=== PATIENT | male | born 1970 | race Caucasian/White ===

== ENCOUNTER 2019-01-21 03:22 | Emergency (ER) | payer MEDICAID ==
--- NOTE | 2019-01-21 03:47 | ED Physician Chart ---
ED Chief Complaint/HPI - Patient Information Date Seen:: 01/21/19 Time Seen:: 03:46 Chief Complaint:: Ear pain and throat lump History of Present Illness:: 48 yo homeless male had bilateral ear pain, right side worse than left side, and right throat painful lump for 2 weeks. Pt stated that he had been to [facility] ER and was given Ibuprofen which was too weak. Pt wanted stronger pain medication. Allergies:: Allergies Allergy/AdvReac Type Severity Reaction Status Date / Time No Known Allergies Allergy Verified 01/21/19 03:35 Vitals:: Vital Signs - 8 hr 01/21/19 03:26 Temp 96.8 F HR 74 RR 19 BP 118/72 O2 Sat % 97 ED Review of Systems - Review of Systems General/Constitutional: No fever, No chills Skin: No rash Head: No headache Eyes: No pain ENT: Earache Neck: No neck pain Cardio Vascular: No chest pain Pulmonary: No SOB GI: No nausea, No vomiting Musculoskeletal: No bone or joint pain Neurological: No focal symptoms ED Past Medical History - Past Medical History Past Medical History: HTN Social History: Non Smoker, No Alcohol, No Drug Use Family Medical History - Family Member Mother History Unknown: Yes ED Physical Exam - Physical Examination General/Constitutional: Awake, Alert Head: Atraumatic Eyes: PERRL, EOMI Skin: No ecchymosis Other ENMT comments:: Right tympanic membrane erythema. Right tonsilar erythema and swelling Neck: No nuchal rigidity Respiratory: Clear to Auscultation Cardio Vascular: RRR, No murmur, gallop, rubs, NL S1 S2 GI: No tenderness/rebounding/guarding Extremities: normal strength in all extremities Neuro/Psych: No focal deficits ED Assessment - Assessment General Assessment: Right otitis media Right tonsillitis Assessment/Comments:: Augmentin 875-125 mg, PO x 1 D/c home F/u PCP or return to ER if symptoms worsen. ED Septic Shock - . Is Septic Shock (SBP<90, OR Lactate>4 mmol\L) present?: No - <6hrs of presentation: Vital Signs: Vital Signs - 8 hr 01/21/19 03:26 Temp 96.8 F HR 74 RR 19 BP 118/72 O2 Sat % 97 ED Reassessment (Disposition) - Reassessment Reassessment Condition:: Improved - Aftercare/Follow up Instructions Medication Prescribed:: Augmentin 875-125 mg, PO, Bid x 10 days - Patient Disposition Discharge/Transfer:: Home
[2019-01-21] MEDS ORDERED: Amoxicillin/Clavulanat 875/125 Tab PO ONE (03:53)
[2019-01-21] MEDS ORDERED: Amoxicillin/Clavulanat 875/125 Tab ONE (03:57)
== END 2019-01-21 04:09 | disposition home or self-care (01) ==
LOC: ER 03:22
DX: H66.91 Otitis media, unspecified, right ear (principal); J03.90 Acute tonsillitis, unspecified; I10 Essential (primary) hypertension; Z59.0 Homelessness
CPT/HCPCS: Z7502; Z7610